=== PATIENT | female | born 1960 | race Caucasian/White ===

== ENCOUNTER → 2020-11-17 | Outpatient (CLI) | payer MEDICARE ==
[~2020-11-17] MED LIST: ENDOCET 5-3251 EACH PO; FLEXERIL 10 MG10 MG PO; IBUPROFEN600 MG PO; MYCOSTATIN CREA15 GM TOP; Voltaren Gel 1 % TOP; ZOFRAN4 MG PO
[2020-11-17 16:32] LABS: HEMOGLOBIN 16.2 gm/dl (12.3-15.3); RED BLOOD COUNT 4.96 M/UL (4.00-5.10); WHITE BLOOD COUNT 14.1 K/UL (4.5-11.0)
[2020-11-17 19:36] LABS: BUN/CREATININE RATIO 20 (0-10)
[2020-11-20 15:13] LABS: CHOLESTEROL, TOTAL 196 mg/dL (100-199); HDL-C 46 mg/dL (>39); HDL-P (TOTAL) 29.5 umol/L (>=30.5); LARGE HDL-P 5.6 umol/L (>=4.8); LARGE VLDL-P 7.7 nmol/L (<=2.7); LDL SIZE 21.1 nm (>20.5); LDL SIZE 21.1 nm (>=20.8); LDL-C 113 mg/dL (0-99); LDL-P 1335 nmol/L (<1000); LP-IR SCORE 60 (<=45); SMALL LDL-P 162 nmol/L (<=527); TRIGLYCERIDES 213 mg/dL (0-149); VLDL SIZE 54.9 nm (<=46.6)
== END ==
LOC: LAB 15:15
PROVIDERS: Emergency Medicine
DX: E07.89 Other specified disorders of thyroid (principal); E11.9 Type 2 diabetes mellitus without complications; E53.8 Deficiency of other specified B group vitamins; E55.9 Vitamin D deficiency, unspecified; E78.2 Mixed hyperlipidemia; F33.2 Major depressive disorder, recurrent severe without psychotic features; F41.1 Generalized anxiety disorder; G43.719 Chronic migraine without aura, intractable, without status migrainosus; G44.89 Other headache syndrome; G89.4 Chronic pain syndrome; J20.8 Acute bronchitis due to other specified organisms; J21.0 Acute bronchiolitis due to respiratory syncytial virus; M15.8 Other polyosteoarthritis; M54.12 Radiculopathy, cervical region; M54.5 Low back pain; M54.6 Pain in thoracic spine; M79.7 Fibromyalgia; R00.2 Palpitations; R10.13 Epigastric pain; R10.816 Epigastric abdominal tenderness; R10.817 Generalized abdominal tenderness; R13.10 Dysphagia, unspecified; Z71.6 Tobacco abuse counseling
CPT/HCPCS: 36415; 80053; 83036; 83690; 84443; 84550; 85025

== ENCOUNTER → 2020-12-29 | Outpatient (CLI) | payer MEDICARE | LOC: CT 12-03 10:00 | DX: R10.812 Left upper quadrant abdominal tenderness (principal); R10.821 Right upper quadrant rebound abdominal tenderness; R07.1 Chest pain on breathing | CPT/HCPCS: 71046; 74160; Q9967 ==

== ENCOUNTER 2021-02-05 14:48 | Emergency (ER) | payer MEDICARE, OTHER ==
[~2021-02-05 14:48] MED LIST changes: -ENDOCET 5-3251 EACH PO; -ZOFRAN4 MG PO
[2021-02-05 16:00] LABS: HEMOGLOBIN 15.3 gm/dl (12.3-15.3); RED BLOOD COUNT 4.64 M/UL (4.00-5.10)
[2021-02-05 16:22] LABS: BUN/CREATININE RATIO 25 (0-10)
[2021-02-05] MEDS ORDERED: ZOFRAN4 MG PO (20:24)
[2021-02-05] MEDS ORDERED: ENDOCET 5-3251 EACH PO (20:26)
== END 2021-02-05 20:32 | disposition home or self-care (01) ==
LOC: ER1 14:48
PROVIDERS: Physician Assistant
DX: K85.90 Acute pancreatitis without necrosis or infection, unspecified (principal); Z90.49 Acquired absence of other specified parts of digestive tract; Z90.710 Acquired absence of both cervix and uterus; Z79.01 Long term (current) use of anticoagulants; F17.210 Nicotine dependence, cigarettes, uncomplicated
CPT/HCPCS: 36415; 80053; 81001; 82550; 82553; 83690; 83874; 84484; 85025; 93005; 96374; 96375; 99284; J1170; J2270; J2405

== ENCOUNTER 2021-02-06 21:24 | Emergency (ER) | payer MEDICARE, OTHER ==
[~2021-02-06 21:24] MED LIST changes: +ENDOCET 5-3251 EACH PO; +ZOFRAN4 MG PO
[2021-02-06 22:19] LABS: HEMOGLOBIN 15.4 gm/dl (12.3-15.3); RED BLOOD COUNT 4.62 M/UL (4.00-5.10); WHITE BLOOD COUNT 13.2 K/UL (4.5-11.0)
[2021-02-06 22:44] LABS: BUN/CREATININE RATIO 21 (0-10)
== END 2021-02-07 00:35 | disposition home or self-care (01) ==
LOC: ER1 21:24
PROVIDERS: Student in an Organized Health Care Education/Training Program
DX: K85.90 Acute pancreatitis without necrosis or infection, unspecified (principal); F17.210 Nicotine dependence, cigarettes, uncomplicated; Z90.49 Acquired absence of other specified parts of digestive tract; Z90.710 Acquired absence of both cervix and uterus; Z20.822 Contact with and (suspected) exposure to COVID-19; Z86.718 Personal history of other venous thrombosis and embolism; Z79.82 Long term (current) use of aspirin; Z79.899 Other long term (current) drug therapy
CPT/HCPCS: 0240U; 80053; 81001; 82550; 82553; 83605; 83690; 83735; 83874; 84100; 84484; 85025; 93005; 96374; 96375; 99284; J2270; J2405

== ENCOUNTER → 2021-04-19 | Outpatient (CLI) | payer MEDICARE, OTHER | LOC: US 13:02 | DX: M79.601 Pain in right arm (principal); D47.3 Essential (hemorrhagic) thrombocythemia | CPT/HCPCS: 93971 ==

== ENCOUNTER → 2021-11-03 | Outpatient (CLI) | payer MEDICARE, OTHER | LOC: CT 10-27 11:00 | DX: K85.00 Idiopathic acute pancreatitis without necrosis or infection (principal) | CPT/HCPCS: 36415; 74170; 80076; 82150; 82565; 83690; 84520; Q9967 ==

== ENCOUNTER 2022-02-14 17:46 | Emergency (ER) | payer MEDICARE, OTHER ==
[2022-02-14 19:24] LABS: BUN/CREATININE RATIO 16 (0-10)
[2022-02-15 06:03] LABS: HEMOGLOBIN 16.1 gm/dl (12.3-15.3); RED BLOOD COUNT 4.5 M/UL (4.00-5.10); WHITE BLOOD COUNT 8.5 K/UL (4.5-11.0)
== END 2022-02-14 21:55 | disposition home or self-care (01) ==
LOC: ER1 17:46
PROVIDERS: Emergency Medicine
DX: R10.11 Right upper quadrant pain (principal); R10.811 Right upper quadrant abdominal tenderness; E78.5 Hyperlipidemia, unspecified; F17.200 Nicotine dependence, unspecified, uncomplicated
CPT/HCPCS: 80053; 82550; 82553; 83690; 84484; 85025; 93005; 96374; 99284; J2270; J7120

== ENCOUNTER → 2022-05-12 | Outpatient (CLI) | payer MEDICARE, OTHER ==
[2022-05-12 13:57] LABS: RED BLOOD COUNT 3.79 M/UL (4.00-5.10); WHITE BLOOD COUNT 9.4 K/UL (4.5-11.0)
[2022-05-12 14:26] LABS: BUN/CREATININE RATIO 19 (0-10)
[2022-05-13 07:10] LABS: CREATININE, URINE 122.6 mg/dL (Not Estab.)
[2022-05-13 08:13] LABS: VITAMIN D, 25-HYDROXY 11.2 ng/mL (30.0-100.0)
[2022-05-13 09:13] LABS: RHEUMATOID ARTHRITIS FACTOR <10.0 IU/mL (<14.0)
[2022-05-15 12:11] LABS: CHOLESTEROL, TOTAL 166 mg/dL (100-199); HDL SIZE 9.3 nm (>=9.2); HDL-C 47 mg/dL (>39); HDL-P (TOTAL) 25.3 umol/L (>=30.5); LARGE HDL-P 6.5 umol/L (>=4.8); LARGE VLDL-P 6.9 nmol/L (<=2.7); LDL SIZE 21.1 nm (>20.5); LDL SIZE 21.1 nm (>=20.8); LDL-C 94 mg/dL (0-99); LDL-P 1157 nmol/L (<1000); LP-IR SCORE 50 (<=45); SMALL LDL-P 322 nmol/L (<=527); TRIGLYCERIDES 140 mg/dL (0-149); VLDL SIZE 52.1 nm (<=46.6)
== END ==
LOC: LAB 13:02
PROVIDERS: Emergency Medicine
DX: M79.7 Fibromyalgia (principal); K21.9 Gastro-esophageal reflux disease without esophagitis; M15.8 Other polyosteoarthritis; E78.2 Mixed hyperlipidemia; E11.9 Type 2 diabetes mellitus without complications; E53.9 Vitamin B deficiency, unspecified; E55.9 Vitamin D deficiency, unspecified; G89.4 Chronic pain syndrome
CPT/HCPCS: 36415; 80053; 80061; 82043; 82306; 82570; 82607; 83036; 83704; 84443; 84550; 85025; 86038; 86140; 86431